=== PATIENT | female | born 1940 | race Hispanic/Latino ===

== ENCOUNTER → 2018-10-13 | Outpatient (CLI) | payer MEDICARE ==
[~2018-10-13] MED LIST: ACYC400T PO; APIX2.5T PO; HYDR12.530 PO; METO50TA18 PO; PHEN-948 PO; SIMV40TA5 PO; SOLI5 PO
== END | disposition home or self-care (01) ==
LOC: OIH 08:59
PROVIDERS: ATTEND Internal Medicine Hematology & Oncology
DX: M25.552 Pain in left hip (principal); M25.551 Pain in right hip
CPT/HCPCS: 73521

== ENCOUNTER 2019-10-26 18:29 | Inpatient (IN) | payer MEDICARE ==
[2019-10-25] MEDS: ZOSYN 3.375GM+NS 50ML 50 ML IV SCH (22:30)
[~2019-10-26] VITALS: Ht 152.4 cm; Wt 74.6 kg
[2019-10-26] MEDS: ZOSYN 3.375GM+NS 50ML 50 ML IV SCH ×3 (06:30→22:30)
[~2019-10-26 18:29] MED LIST changes: +SIMV-46 PO; -SIMV40TA5 PO
[2019-10-26 19:24] LABS: BASOPHILS % (AUTO) 0.1 % (0.0-5.0); EOSINOPHILS % (AUTO) 0.3 % (0.0-8.0); HEMATOCRIT 43.4 % (36-48); LYMPHOCYTES % (AUTO) 13.5 % (21.0-51.0); MEAN CORPUSCULAR HEMOGLOBIN 29.3 pg (27.0-33.0); MEAN CORPUSCULAR HGB CONC 33.2 g/dL (32.0-36.0); MEAN CORPUSCULAR VOLUME 88.2 fL (79-99); MONOCYTES % (AUTO) 4.5 % (3.0-13.0); NEUTROPHILS % (AUTO) 81.1 % (40.0-77.0); PLATELET COUNT (AUTO) 193 K/uL (130-400); RED BLOOD CELL COUNT(AUTO) 4.92 MIL/uL (4.00-5.50); RED CELL DISTRIBUTION WIDTH 13.5 % (11.0-15.5); WHITE BLOOD COUNT (AUTO) 7.4 K/uL (4.8-10.8)
[2019-10-26 19:37] LABS: POTASSIUM 3.8 mmol/L (3.5-5.1)
[2019-10-26 19:42] LABS: ALBUMIN 4.2 g/dL (3.5-5.0); BILIRUBIN,TOTAL 1.4 mg/dL (0.2-1.0); TOTAL PROTEIN, SERUM 7.4 g/dL (6.0-8.3)
[2019-10-26 19:44] LABS: APPEARANCE,URINE Clear (CLEAR); BILIRUBIN,URINE Negative (NEGATIVE); COLOR,URINE Yellow (YELLOW); GLUCOSE, URINE (UA) Negative (NEGATIVE); KETONES,URINE Trace mg/dL (NEGATIVE); LEUKOCYTE ESTERASE ,URINE Trace (NEGATIVE); NITRATE,URINE Negative (NEGATIVE); OCCULT BLOOD,URINE Trace (NEGATIVE); PROTEIN,URINE POS 1+ mg/dL (NEGATIVE)
[2019-10-26 20:09] LABS: BACTERIA,URINE Few /HPF (None Seen); RBC,URINE 0-1 /HPF (0-1)
[2019-10-26 20:10] LABS: SQUAMOUS EPITHELIAL CELL,UR Few /HPF (0-2)
[2019-10-26 21:40] LABS: AMYLASE 68 U/L (25-115); LIPASE 116 U/L (114-286)
[2019-10-26] MEDS: SODIUM CHLORIDE 0.9% 1000ML 1,000 ML IV SCH (21:59)
[2019-10-26] MEDS ORDERED: ACETAMINOPHEN 325 MG TAB PO PRN (22:00)
[2019-10-26] MEDS ORDERED: LACTULOSE 20 GM/30 ML UDCUP PO PRN (22:00)
[2019-10-26] MEDS ORDERED: MORPHINE SULFATE 2 MG/ML 1ML SYG IV PRN (22:00)
[2019-10-26] MEDS ORDERED: ONDANSETRON HCL 4 MG/2 ML VIAL IV PRN (22:00)
[2019-10-26] MEDS ORDERED: HYDRALAZINE HCL 20 MG/ML VIAL IV PRN (23:00)
[2019-10-27] MEDS ORDERED: ZOSYN 3.375GM+NS 50ML 50 ML IV ONE ×2 (01:48→07:56)
[2019-10-27] MEDS: INSULIN HUMULIN R 100 UNIT/ML 3ML SQ SCH ×4 (06:00→18:00)
[2019-10-27] MEDS: ZOSYN 3.375GM+NS 50ML 50 ML IV SCH ×3 (06:30→21:53)
[2019-10-27 07:03] LABS: BASOPHILS % (AUTO) 0.3 % (0.0-5.0); HEMATOCRIT 41.7 % (36-48); LYMPHOCYTES % (AUTO) 28.2 % (21.0-51.0); MEAN CORPUSCULAR HEMOGLOBIN 29.3 pg (27.0-33.0); MEAN CORPUSCULAR HGB CONC 33.3 g/dL (32.0-36.0); MONOCYTES % (AUTO) 9.2 % (3.0-13.0); NEUTROPHILS % (AUTO) 61.1 % (40.0-77.0); PLATELET COUNT (AUTO) 172 K/uL (130-400); RED BLOOD CELL COUNT(AUTO) 4.74 MIL/uL (4.00-5.50); RED CELL DISTRIBUTION WIDTH 13.5 % (11.0-15.5); WHITE BLOOD COUNT (AUTO) 6.2 K/uL (4.8-10.8)
[2019-10-27 07:09] LABS: CREATININE 0.8 mg/dL (0.5-1.5); POTASSIUM 3.4 mmol/L (3.5-5.1)
[2019-10-27] MEDS ORDERED: ENOXAPARIN SODIUM 40 MG/0.4 ML SYRINGE SQ ONE (07:56)
[2019-10-27] MEDS ORDERED: FAMOTIDINE/PF 20 MG/2 ML VIAL IV ONE (07:56)
[2019-10-27] MEDS: SODIUM CHLORIDE 0.9% 1000ML 1,000 ML IV SCH (07:59)
[2019-10-27] MEDS: ENOXAPARIN SODIUM 40 MG/0.4 ML SYRINGE SQ SCH (09:00)
[2019-10-27] MEDS: FAMOTIDINE/PF 20 MG/2 ML VIAL IV SCH ×2 (09:00→21:05)
[2019-10-27] MEDS ORDERED: SODIUM CHLORIDE 0.9% 1000ML 1,000 ML IV ONE (14:28)
[2019-10-27 14:45] VITALS: BP 171/74
--- NOTE | 2019-10-27 14:45 | NUR ---
REPORT GIVEN TO ELLIS RN ( CHARGE NURSE) BY ER NURSE (JUANCHO). PATIENT ADMITTED FOR SBO UNDER DR. [facility] SERVICES FOR C/O ABDOMINAL PAIN AFTER EATING. 14FR NGT IN PLACE WITH OUTPUT OF 800ML IN ER. PATIENT TO CONTINUE ON ZOSYN Q 8HRS. PATIENT STABLE AT THIS TIME.
[2019-10-27] MEDS ORDERED: TRAM50TA4 PO (19:26)
[2019-10-27] MEDS ORDERED: AZEL23SP2 NS (19:26)
[2019-10-27] MEDS ORDERED: COLC0.6T70 PO (19:26)
[2019-10-27] MEDS ORDERED: GABA-529 PO (19:26)
[2019-10-27 20:00] VITALS: BP 173/103
--- NOTE | 2019-10-27 21:45 | NUR ---
RE-INSERTED 14FR NG TUBE DOWN LEFT NARE USING ASEPTIC TECHNIQUE. TUBE SECURED IN PLACE, CHECKED FOR PLACEMENT, AND RECONNECTED TO LOW INTERMITTENT SUCTION.
[2019-10-28] VITALS (7 sets, daily range): BP systolic 122–177; BP diastolic 55–75
[2019-10-28] MEDS: SODIUM CHLORIDE 0.9% 1000ML 1,000 ML IV SCH ×3 (04:21→23:59)
[2019-10-28 05:26] LABS: BASOPHILS % (AUTO) 0.5 % (0.0-5.0); HEMATOCRIT 39.4 % (36-48); LYMPHOCYTES % (AUTO) 14.4 % (21.0-51.0); MEAN CORPUSCULAR HEMOGLOBIN 29.1 pg (27.0-33.0); MEAN CORPUSCULAR HGB CONC 33.2 g/dL (32.0-36.0); MEAN CORPUSCULAR VOLUME 87.6 fL (79-99); MONOCYTES % (AUTO) 5.1 % (3.0-13.0); NEUTROPHILS % (AUTO) 79.5 % (40.0-77.0); PLATELET COUNT (AUTO) 160 K/uL (130-400); RED CELL DISTRIBUTION WIDTH 13.4 % (11.0-15.5); WHITE BLOOD COUNT (AUTO) 6.5 K/uL (4.8-10.8)
[2019-10-28 05:56] LABS: CREATININE 1.1 mg/dL (0.5-1.5); POTASSIUM 3.4 mmol/L (3.5-5.1)
[2019-10-28] MEDS: INSULIN HUMULIN R 100 UNIT/ML 3ML SQ SCH ×4 (06:00→21:45)
[2019-10-28] MEDS: ZOSYN 3.375GM+NS 50ML 50 ML IV SCH ×3 (06:02→21:08)
[2019-10-28] MEDS ORDERED: LIDOCAINE HCL-MPF 1% 2ML VIAL IJ PRN (08:30)
[2019-10-28] MEDS ORDERED: POTASSIUM CHLORIDE 20MEQ/100ML 100 ML IV PRN (08:30)
[2019-10-28] MEDS: FAMOTIDINE/PF 20 MG/2 ML VIAL IV SCH ×2 (08:59→21:08)
[2019-10-28] MEDS: ENOXAPARIN SODIUM 40 MG/0.4 ML SYRINGE SQ SCH (09:00)
--- NOTE | 2019-10-28 18:09 | NUR ---
D/C PLAN CM spoke to pt regarding d/c planning. Pt is ind. and lives alone. Has a provider about 28 hrs/week. States she has a wk at home. Pt states she is agreeable to SNF placement if needed. Plan to home for now. CM to f/u. Addendum: 10/28/19 at 1810 by DANIEL ROWELL CM Amended: Links added.
[2019-10-28] MEDS: SIMVASTATIN 20 MG TABLET PO SCH (21:08)
[2019-10-28] MEDS: ACETAMINOPHEN 325 MG TAB PO PRN (21:09)
[2019-10-29] VITALS (7 sets, daily range): BP systolic 137–192; BP diastolic 66–106
[2019-10-29 06:07] LABS: BASOPHILS % (AUTO) 0.4 % (0.0-5.0); EOSINOPHILS % (AUTO) 1.5 % (0.0-8.0); HEMATOCRIT 39.1 % (36-48); LYMPHOCYTES % (AUTO) 29.5 % (21.0-51.0); MEAN CORPUSCULAR HEMOGLOBIN 29.4 pg (27.0-33.0); MEAN CORPUSCULAR HGB CONC 33.5 g/dL (32.0-36.0); MEAN CORPUSCULAR VOLUME 87.7 fL (79-99); MONOCYTES % (AUTO) 8.3 % (3.0-13.0); NEUTROPHILS % (AUTO) 59.9 % (40.0-77.0); PLATELET COUNT (AUTO) 169 K/uL (130-400); RED BLOOD CELL COUNT(AUTO) 4.46 MIL/uL (4.00-5.50); RED CELL DISTRIBUTION WIDTH 13.4 % (11.0-15.5); WHITE BLOOD COUNT (AUTO) 4.7 K/uL (4.8-10.8)
[2019-10-29 06:19] LABS: POTASSIUM 3.7 mmol/L (3.5-5.1)
[2019-10-29] MEDS: ZOSYN 3.375GM+NS 50ML 50 ML IV SCH ×2 (06:30→14:30)
--- NOTE | 2019-10-29 06:30 | NUR ---
PATIENT CONFUSED, REMOVED 24GA PIV TO RIGHT WRIST WHILE IN THE RESTROOM. UNABLE TO ADMINISTER ZOSYN IV DUE TO INABILITY TO START ANOTHER IV.
[2019-10-29] MEDS: INSULIN HUMULIN R 100 UNIT/ML 3ML SQ SCH ×4 (07:30→21:00)
--- NOTE | 2019-10-29 08:00 | NUR ---
PT CONFUSED AT NIGHT AND PULLED IV OUT. PT IS A HARD STICK NOT ABLE TO GET IV ACCESS. PT MAY BE D/C POSSIBLY TODAY
[2019-10-29] MEDS: AZELASTINE NASAL SCH ×2 (09:00→21:00)
[2019-10-29] MEDS: FAMOTIDINE/PF 20 MG/2 ML VIAL IV SCH (09:00)
[2019-10-29] MEDS: FLUTICASONE NASAL SCH ×2 (09:00→21:00)
[2019-10-29] MEDS: METOPROLOL TARTRATE 50 MG TAB PO SCH (09:53)
[2019-10-29] MEDS: ACYCLOVIR 200 MG CAPSULE PO SCH (09:53)
[2019-10-29] MEDS: COLCHICINE 0.6 MG TABLET PO SCH (09:53)
[2019-10-29] MEDS: ENOXAPARIN SODIUM 40 MG/0.4 ML SYRINGE SQ SCH (09:54)
[2019-10-29] MEDS: SODIUM CHLORIDE 0.9% 1000ML 1,000 ML IV SCH ×2 (10:00→19:59)
--- NOTE | 2019-10-29 15:02 | NUR ---
CONFUSED, ORDER FOR POSS DISCHARGE? REVIEWED NOTES BY MAGGIE YESTERDAY NOTED PATIENT LIVES ALONE, HERE IS ON A ONE TO ONE TRIED TO GET FAMILY ON THE PHONE, NO ANSWER. ADVISED PRIMARY DIOGO ORTIZ THAT MAGGIE TRIED TO CONTACT FAMILY PATIENT CANNOT BE DISCHARGED WITHOUT SAFE DC PLAN. CALL AGAIN TO [facility] REY. STRAIGHT TO VOICE MAIL Addendum: 10/29/19 at 1505 by CHRISTOPHER FUNES RN CM Amended: Links added.
--- NOTE | 2019-10-29 15:39 | NUR ---
CALL REC'D FROM KRISSY, SON IN LAW- FOR [facility]- HARD TO HEAR HIM, BAD CONNECTION, ADVISED WOULD CALL BACK- CALL BACK WENT TO VOICE MAIL. ADVISED CHARGE HENOK THAT CM NOTES SAY PATIENT LIVES ALONE, WE HAVE NOT MADE GOOD CONTACT WITH FAMILY YET, WILL NEED OT ENSURE SAFE DISCHARGE
[2019-10-29] MEDS ORDERED: FAMOTIDINE 20MG TAB 20 MG TAB PO SCH (21:00)
[2019-10-29] MEDS: SIMVASTATIN 20 MG TABLET PO SCH (21:13)
[2019-10-29] MEDS: ACETAMINOPHEN 325 MG TAB PO PRN (21:19)
[2019-10-30] MEDS: AMLODIPINE BESYLATE 5 MG TAB PO SCH ×2 (02:00→09:19)
[2019-10-30] MEDS ORDERED: AMLODIPINE BESYLATE 5 MG TAB ONE (02:05)
[2019-10-30] MEDS: ACETAMINOPHEN 325 MG TAB PO PRN (03:14)
[2019-10-30 03:34] VITALS: BP 138/84
[2019-10-30 07:00] VITALS: BP 140/72
[2019-10-30] MEDS: INSULIN HUMULIN R 100 UNIT/ML 3ML SQ SCH (07:05)
[2019-10-30] MEDS: FLUTICASONE NASAL SCH (09:00)
[2019-10-30] MEDS: AZELASTINE NASAL SCH (09:00)
[2019-10-30] MEDS: ACYCLOVIR 200 MG CAPSULE PO SCH (09:19)
[2019-10-30] MEDS: ENOXAPARIN SODIUM 40 MG/0.4 ML SYRINGE SQ SCH (09:19)
[2019-10-30] MEDS: COLCHICINE 0.6 MG TABLET PO SCH (09:19)
[2019-10-30] MEDS: METOPROLOL TARTRATE 50 MG TAB PO SCH (09:19)
--- NOTE | 2019-10-30 10:00 | NUR ---
CALL TO DAUGHTER- WAS ABLE TO REACH HER RE DC PLANNED FOR TODAY STATES SHE MISUNDERSTOOD, STATES SHE THOUGHT PATIENT COULD NOT GO HOME ADVISED HER OF PATIENTS CONFUSION, DTR STATES THEY WILL HAVE A BETTER PLAN FOR SURVEILLANCE, ASSISTANCE; PATIENT LESS CONFUSED TODAY RN TO GIVE HER DISCHARGE INSTRUCTIONS NO PLANS FOR PLACEMENT AT THIS TIME
--- NOTE | 2019-10-30 10:41 | NUR ---
D/C PT LEFT VIA WHEELCHAIR IN PVT CAR, D/C INSTRUCTIONS. PT ATE ALL HER BREAKFAST, BOWEL SOUNDS PRESENT HAD A BOWEL MOVEMENT YESTERDAY. PT. D/C INSTRUCTIONS GIVEN TO DAUGHTER ORESTES AND TO SEE PCP IN 2-3 DAYS. PT A/A X 2 , V/S STABLE.
--- NOTE | 2019-10-30 18:52 | NUR ---
CALL TO DAUGHTER, WAS ABLE TO REACH HER STATES SHE WAS OUT OF TOWN ON AN EMERGENCY AND HER PHONE WAS NOT CHARGED. STATES YES WILL COME AND PROP SAWYER PATIENT DISCUSSED PATIENTS CONFUSION, FAMILY STATES HAS A PLAN TO INCREASE SURVIELLANCE/SAFETY. NO PLANS FOR PLACEMENT AT THIS TIME Addendum: 10/30/19 at 1923 by CHRISTOPHER FUNES RN CM WRONG PATIENT- PLEASE DISREGARD
== END 2019-10-30 10:45 | disposition home or self-care (01) | DRG 372 ==
LOC: EDH 18:29 → EDHIP 21:59 → 3AH 10-27 15:20
PROVIDERS: ADMIT Hospitalist; ATTEND Hospitalist
PROC: 0D9670Z Drainage of Stomach with Drainage Device, Via Natural or Artificial Opening (ICD-10-PCS; principal; 2019-10-26)
DX: A04.9 Bacterial intestinal infection, unspecified (principal); K56.609 Unspecified intestinal obstruction, unspecified as to partial versus complete obstruction; I10 Essential (primary) hypertension; I48.91 Unspecified atrial fibrillation; E11.9 Type 2 diabetes mellitus without complications; I25.10 Atherosclerotic heart disease of native coronary artery without angina pectoris; Z82.0 Family history of epilepsy and other diseases of the nervous system; Z82.49 Family history of ischemic heart disease and other diseases of the circulatory system; Z83.3 Family history of diabetes mellitus; Z86.73 Personal history of transient ischemic attack (TIA), and cerebral infarction without residual deficits; Z90.5 Acquired absence of kidney; Z90.710 Acquired absence of both cervix and uterus; Z95.5 Presence of coronary angioplasty implant and graft
CPT/HCPCS: 36415; 74018; 74176; 80048; 80053; 81001; 82150; 82948; 83690; 83735; 84484; 85025; 93005; G0378; J0360; J1650; J2543; J3480; J3490; J7030

== ENCOUNTER → 2020-10-14 | Outpatient (CLI) | payer MEDICARE ==
[~2020-10-14] MED LIST changes: -ACYC400T PO; +ACYC400T20 PO; +AZEL23SP2 NS; +GABA-529 PO; -HYDR12.530 PO; -PHEN-948 PO; -SOLI5 PO
== END | disposition home or self-care (01) ==
LOC: RAH 10:39
PROVIDERS: ATTEND Otolaryngology Plastic Surgery within the Head & Neck
DX: K21.9 Gastro-esophageal reflux disease without esophagitis (principal); R13.10 Dysphagia, unspecified
CPT/HCPCS: 74230; 92611